=== PATIENT | female | born 1985 | race Caucasian/White ===

== ENCOUNTER 2020-02-17 09:52 | Emergency (ER) | payer BC, OTHER ==
[2020-02-17 09:59] VITALS: BMI 30.3
[2020-02-17] MEDS ORDERED: METOCLOPRAMIDE HCL INJECTION 10 MG/2 ML VIAL IVPUSH ONE (11:36)
[2020-02-17] MEDS ORDERED: ACETAMINOPHEN 1000 MG/100 ML VIAL (NON FORMULARY) IVPB ONE (11:36)
[2020-02-17] MEDS ORDERED: FAMOTIDINE 20 MG/50 ML IVPB 20 MG/50 ML MG IVPB ONE ×2 (11:36→11:50)
[2020-02-17] MEDS ORDERED: METOCLOPRAMIDE HCL INJECTION 10 MG/2 ML VIAL ONE (11:49)
[2020-02-17] MEDS ORDERED: ACETAMINOPHEN INJECTION 100 ML IVPB ONE (11:49)
[2020-02-17 11:58] LABS: BASO % 0.4 % (0-2.0); EOS % 0.9 % (0-4.5); HEMATOCRIT 39.8 % (32.4-45.2); HEMOGLOBIN 13.4 GM/dL (10.7-15.3); LYMPH % 38.9 % (8-40); MCH 28.2 pg (25.7-33.7); MCHC 33.6 g/dl (32.0-36.0); MEAN PLT VOLUME 10.2 fl (7.5-11.1); MONO % 6.9 % (3.8-10.2); NEUT % 52.9 % (42.8-82.8); PLATELET COUNT 196 K/MM3 (134-434); RBC 4.74 M/mm3 (3.60-5.2); RDW 13.9 % (11.6-15.6); WHITE BLOOD COUNT 4.7 K/mm3 (4.0-10.0)
[2020-02-17 12:21] LABS: POTASSIUM 4.2 mmol/L (3.5-5.1)
[2020-02-17 12:23] LABS: ALBUMIN 3.8 g/dl (3.4-5.0); CALCIUM 9.2 mg/dL (8.5-10.1)
[2020-02-17 12:24] LABS: BLOOD UREA NITROGEN 10.7 mg/dL (7-18)
[2020-02-17 12:25] LABS: CREATININE 0.8 mg/dL (0.55-1.3)
[2020-02-17 12:27] LABS: BILIRUBIN,TOTAL 0.3 mg/dL (0.2-1); TOT PROT 7.6 g/dl (6.4-8.2)
[2020-02-17 12:32] LABS: PH,URINE 8.5 (5.0-8.0); URINE APPEARANCE CLEAR; URINE BILIRUBIN NEGATIVE (NEGATIVE); URINE COLOR YELLOW; URINE GLUCOSE (UA) NEGATIVE (NEGATIVE); URINE KETONE NEGATIVE (NEGATIVE); URINE LEUK ESTERASE NEGATIVE (NEGATIVE); URINE NITRITE NEGATIVE (NEGATIVE); URINE PROTEIN NEGATIVE (NEGATIVE); URINE UROBILINOGEN 0.2 mg/dL (0.2-1.0)
[2020-02-17 12:35] LABS: HCG,QUALITATIVE URINE Negative
[2020-02-17] MEDS ORDERED: LACTATED RINGERS SOLUTION 1000 ML INFUS.BAG IV ONE (12:46)
[2020-02-17 13:51] VITALS: BP 112/72; PULSE 78; TEMP 98.1
== END 2020-02-17 13:52 | disposition home or self-care (01) ==
LOC: JER 09:52
PROC: 3E0333Z Introduction of Anti-inflammatory into Peripheral Vein, Percutaneous Approach (ICD-10-PCS; principal; 2020-02-17)
PROC: 3E033GC Introduction of Other Therapeutic Substance into Peripheral Vein, Percutaneous Approach (ICD-10-PCS; 2020-02-17)
PROC: 3E033GC Introduction of Other Therapeutic Substance into Peripheral Vein, Percutaneous Approach (ICD-10-PCS; 2020-02-17)
DX: R10.12 Left upper quadrant pain (principal)
CPT/HCPCS: 36415; 71045-TC-FY; 80053; 81003; 83690; 84703; 85025; 87086; 93005; 93010; 99285-25; C9803; J0131; U0003